=== PATIENT | male | born 1990 | race Caucasian/White ===

== ENCOUNTER 2020-03-02 12:08 | Inpatient (IN) ==
[2020-03-02] MEDS ORDERED: ONDANSETRON 4 MG/2 ML VIAL IV ONE (12:16)
[2020-03-02] MEDS ORDERED: LACTATED RINGERS 1,000 ML IV ONE ×2 (12:16→12:21)
[2020-03-02] MEDS ORDERED: PANTOPRAZOLE 40 MG VIAL IV ONE ×2 (12:27→22:25)
[2020-03-02] MEDS ORDERED: 0.9 % SODIUM CHLORIDE 1,000 ML IV ONE ×3 (12:30→14:17)
--- NOTE | 2020-03-02 12:31 | Emergency Department Note ---
Nausea/Vomiting/Diarrhea HPI General Chief complaint: Nausea/Vomiting/Diarrhea Stated complaint: nausea, vomiting Time Seen by Provider: 03/02/20 12:15 Source: patient and RN notes reviewed Mode of arrival: ambulatory Limitations: no limitations History of Present Illness HPI Narrative: Narrative: This patient felt a little nauseous yesterday afternoon and took some Pepto- Bismol and this morning had a large black stool and then vomited up some coffee- ground material. He does look a little bit pale. He has a history of reflux and had an EGD at age 19, 10 years ago. He has not taken any recent aspirin or NSAIDs. He has never had bleeding before that he knows of. His blood pressure was little low initially but he did not feel faint. No other medical problems of significance. He does not have abdominal pain. MD complaint: nausea and vomiting Onset (ago): hour(s) Description of Vomiting: coffee grounds Associated Abdominal Pain: No Associated symptoms: Reports other (Melena) Related Data Home Medications Medication Instructions Recorded Confirmed No Known Home Meds 05/06/19 03/02/20 Allergies Allergy/AdvReac Type Severity Reaction Status Date / Time bee venom protein (honey bee) Allergy Severe Anaphylaxis Verified 03/02/20 12:11 Penicillins [PENICILLINS] Allergy Intermediate RASH Verified 03/02/20 12:11 Review of Systems ROS ROS Narrative: Narrative: All systems ED: reviewed and negative except as stated. PFS Narrative Patient History Narrative: Narrative: Medical/Surgical/Family History All Active Problems (Updated 03/02/20 @ 15:19 by Liam Mendez MD) Upper respiratory infection (Acute) Insect bite (Acute) Muscle pain (Acute) Right inguinal hernia (Acute) Acute upper gastrointestinal bleeding (Acute) Social History Smoking Status: Current every day smoker Exam Narrative Narrative: Narrative: General Limitations: no limitations Head Head: Present atraumatic, normocephalic and normal inspection Eye Eye: Present normal appearance and EOMI; Absent scleral icterus and conjunctival injection ENT ENT: Present normal exam, normal oropharynx and mucous membranes moist Neck Neck: Present normal inspection and full ROM Chest Chest: Present normal inspection and symmetric chest wall rise Respiratory Respiratory: Present normal lung sounds bilaterally; Absent respiratory distress, rales/crackles and wheezes Cardiovascular Cardiovascular: Present regular rate, normal rhythm and normal heart sounds Adbominal Abdominal: Present soft; Absent distention and tenderness Rectal Rectal: Present heme (+) stool Extremities Extremities: Present normal inspection and full ROM; Absent pedal edema and pretibial edema Neurological Neurological: Present alert Psychiatric Psychiatric: Present normal affect Skin Skin: Present warm (WNL), dry and other (Skin seems pale in general) Course Vital Signs Vital signs: Vital Signs Pulse Rate 67 03/02/20 12:08 Respiratory Rate 16 03/02/20 12:08 Blood Pressure 85/62 03/02/20 12:08 Pulse Oximetry (%) 98 03/02/20 12:08 Temperature 97.6 F 03/02/20 14:09 Pulse Rate 65 03/02/20 14:46 Respiratory Rate 16 03/02/20 14:46 Blood Pressure 114/68 03/02/20 14:46 Pulse Oximetry (%) 98 03/02/20 14:46 MDM MDM Narrative Medical decision making narrative: Narrative: Lab Data Lab results reviewed: Yes I reviewed the patient's lab results. Lab results narrative: Patient's hemoglobin is dropped from 16-12.8 and his BUN is going up from 13-45 from previous testing. Patient initially was a little bit worrisome with blood pressures in the 80s but they came up rapidly with fluid hydration. He was given a Protonix protocol with bolus and drip. I discussed this case with Dr. Saab who will admit the patient to the hospital for endoscopy in the morning. Patient seems to have stabilized and is doing well at this time. Result diagrams: 03/02/20 12:20 03/02/20 12:20 Labs: Lab Results 03/02/20 03/02/20 03/02/20 Range/Units 12:20 12:20 14:06 WBC 22.4 H (4.5-11.0) K/mcL RBC 3.98 L (4.50-5.90) M/mcL Hgb 12.8 L (13.5-16.5) g/dL Hct 37.7 L (41.0-55.0) % MCV 94.7 (80.0-100.0) fL MCH 32.2 (26.0-34.0) pg MCHC 34.0 (31.0-36.0) g/dL RDW 11.6 (11.5-14.5) % Plt Count 301 (140-440) K/mcL MPV 11.0 H (7.4-10.4) fL Neut % (Auto) 75.4 (38.0-78.0) % Lymph % (Auto) 17.4 (15.0-49.0) % [place] % (Auto) 5.7 (1.0-12.0) % Eos % (Auto) 1.1 (0.0-7.0) % Baso % (Auto) 0.4 (0.0-2.0) % Lymph # (Auto) 3.90 (1.50-4.80) K/mcL Willacy # (Auto) 1.27 H (0.10-0.90) K/mcL Eos # (Auto) 0.24 (0.00-0.70) K/mcL Baso # (Auto) 0.09 (0.00-0.20) K/mcL Absolute Neutrophils 16.94 H (1.80-8.00) K/mcL VBG Lactic Acid 2.5 H (0.5-2.0) mmol/L Sodium 139 (133-145) mmol/L Potassium 3.8 (3.3-5.1) mmol/L Chloride 99 (96-108) mmol/L Carbon Dioxide 23 (22-30) mmol/L Anion Gap 17.0 H (8.0-16.0) BUN 45 H (6-20) mg/dL Creatinine 0.8 (0.7-1.2) mg/dL GFR Calculation 121 Glucose 165 H (70-105) mg/dL Calcium 8.8 (8.6-10.4) mg/dL Total Bilirubin 0.4 (0.1-1.0) mg/dL AST 18 (<40) U/L ALT 19 (<40) U/L Alkaline Phosphatase 70 (39-117) U/L Total Protein 6.0 (5.9-8.4) gm/dL Albumin 4.0 (3.2-5.2) gm/dL Globulin 2.0 L (2.2-3.7) gm/dL Albumin/Globulin Ratio 2.0 (1.0-2.3) Discharge Plan Patient/Caregiver Discharge Instructions Pt seen by SKATES OPERATOR/PA only: No Clinical Impression: Acute upper gastrointestinal bleeding Patient Disposition: Xfer As Outpt/Obs ([facility]) Follow up with: No,PCP [Primary Care Provider] - Prescriptions: No Action No Known Home Meds RF: 0
[2020-03-02] MEDS: PANTOPRAZOLE 80 MG in 0.9 % SODIUM CHLORIDE 100 ML IV SCH ×2 (12:52→22:30)
[2020-03-02 13:12] LABS: Basophils # (Auto) 0.09 K/mcL (0.00-0.20); Basophils % (Auto) 0.4 % (0.0-2.0); Eosinophils # (Auto) 0.24 K/mcL (0.00-0.70); Eosinophils % (Auto) 1.1 % (0.0-7.0); Hematocrit 37.7 % (41.0-55.0); Hemoglobin 12.8 g/dL (13.5-16.5); Lymphocytes % (Auto) 17.4 % (15.0-49.0); Mean Cell Volume 94.7 fL (80.0-100.0); Monocytes # (Auto) 1.27 K/mcL (0.10-0.90); Monocytes % (Auto) 5.7 % (1.0-12.0); Neutrophils % (Auto) 75.4 % (38.0-78.0); Platelet Count 301 K/mcL (140-440); RBC 3.98 M/mcL (4.50-5.90); Red Cell Distribution Width 11.6 % (11.5-14.5); WBC 22.4 K/mcL (4.5-11.0)
[2020-03-02 13:29] LABS: ALT/SGPT 19 U/L (<40); AST/SGOT 18 U/L (<40); Alkaline Phosphatase 70 U/L (39-117); Bilirubin,Total 0.4 mg/dL (0.1-1.0); Blood Urea Nitrogen 45 mg/dL (6-20); Calcium 8.8 mg/dL (8.6-10.4); Carbon Dioxide 23 mmol/L (22-30); Chloride 99 mmol/L (96-108); Glomerular Filtration Rate 121; Glucose 165 mg/dL (70-105)
[2020-03-02] MEDS ORDERED: ONDANSETRON 4 MG/2 ML VIAL IV PRN (15:19)
[2020-03-02] MEDS ORDERED: 0.9 % SODIUM CHLORIDE 250 ML IV SCH (17:45)
--- NOTE | 2020-03-02 18:18 | General Surg History&Physical ---
HPI History of Present Illness Patient information: Note initiated : 03/02/20 at 6:11 pm Service Date, if different from initiated Date: [] Patient: Chun Sosa 29 y/o M admitted on 03/02/20 for nausea, vomiting. Chief Complaint: [] History of present illness: Mr. Sosa is a 29 year old M admitted with an upper GI bleed. The patient states that he developed nausea earlier this morning. This was followed by emesis of coffee ground liquid and large volume melena. He denies upper abdominal pain. He had emesis 3 AND HAS NOT HAD ANY SINCE THAT TIME. He has not been taking any [id number] medications. He rarely drinks alcohol and has not had any S2 weeks. His hemoglobin is 12.8. His last recorded hemoglobin was 16. There is no family history of peptic ulcer disease. Review of Systems All systems: reviewed and no additional remarkable complaints except as stated PFSH PFSH All Active Problems Upper respiratory infection (Acute) Insect bite (Acute) Muscle pain (Acute) Right inguinal hernia (Acute) Acute upper gastrointestinal bleeding (Acute) Social History (Updated 03/02/20 @ 18:14 by Tai Saab MD) adopted: No caregiver/support person: No foster care: No marital status: single well-balanced diet: daily or most days smoking status: Current every day smoker alcohol intake frequency: a few times a month substance use type: marijuana MEDS/ALLERGIES Home Medications and Allergies Home Medications Medication Instructions Recorded Confirmed Type No Known Home Meds 05/06/19 03/02/20 History Allergies Allergy/AdvReac Type Severity Reaction Status Date / Time bee venom protein (honey bee) Allergy Severe Anaphylaxis Verified 03/02/20 12:11 Penicillins [PENICILLINS] Allergy Intermediate RASH Verified 03/02/20 12:11 Physical Examination Vital Signs Vital signs: Temp Pulse Resp BP Pulse Ox 98.6 F 69 18 110/62 96 03/02/20 17:46 03/02/20 17:46 03/02/20 17:46 03/02/20 17:46 03/02/20 17:46 General physical appearance General physical exam: well developed, well nourished, no distress and no pain Eyes Eye exam: PERRL and normal ocular movement; negative pale ENT ENT exam: normal pinna, normal nares, normal mucosa, no hearing loss and no congestion Head Head exam IM: Present atraumatic, normal inspection and normocephalic Neck Neck exam: no masses, no bruits, trachea midline, no lymphadenopathy and no venous distension Cardiovascular Cardiovascular exam IM: Present normal rate and rhythm, RRR, +S1 and +S2; Absent JVD and tachycardia Respiratory Respiratory exam: normal expansion, normal respiratory effort and clear to auscultation Abdomen Abdomen: Present soft and non tender; Absent masses and distended Hernia: Present inguinal (right inguinal hernia) Integumentary Integumentary: Present no rash, no growths and no abnormal pigmentation Neurologic Neurologic: Present normal coordination and normal sensation Musculoskeletal Musculoskeletal: Present normal gait and normal posture Psychiatric Psychiatric: Present oriented to time, oriented to person, oriented to place, speech is normal and memory intact Results Labs Result diagrams: 03/02/20 12:20 03/02/20 12:20 Labs: Abnormal lab results 03/02/20 03/02/20 03/02/20 Range/Units 12:20 12:20 14:06 WBC 22.4 H (4.5-11.0) K/mcL RBC 3.98 L (4.50-5.90) M/mcL Hgb 12.8 L (13.5-16.5) g/dL Hct 37.7 L (41.0-55.0) % MPV 11.0 H (7.4-10.4) fL Tucker # (Auto) 1.27 H (0.10-0.90) K/mcL Absolute Neutrophils 16.94 H (1.80-8.00) K/mcL VBG Lactic Acid 2.5 H (0.5-2.0) mmol/L Anion Gap 17.0 H (8.0-16.0) BUN 45 H (6-20) mg/dL Glucose 165 H (70-105) mg/dL Globulin 2.0 L (2.2-3.7) gm/dL Diabetes panel 03/02/20 Range/Units 12:20 Sodium 139 (133-145) mmol/L Potassium 3.8 (3.3-5.1) mmol/L Chloride 99 (96-108) mmol/L Carbon Dioxide 23 (22-30) mmol/L BUN 45 H (6-20) mg/dL Creatinine 0.8 (0.7-1.2) mg/dL Glucose 165 H (70-105) mg/dL Calcium 8.8 (8.6-10.4) mg/dL AST 18 (<40) U/L ALT 19 (<40) U/L Alkaline Phosphatase 70 (39-117) U/L Total Protein 6.0 (5.9-8.4) gm/dL Albumin 4.0 (3.2-5.2) gm/dL Calcium panel 03/02/20 Range/Units 12:20 Calcium 8.8 (8.6-10.4) mg/dL Albumin 4.0 (3.2-5.2) gm/dL Pituitary panel 03/02/20 Range/Units 12:20 Sodium 139 (133-145) mmol/L Potassium 3.8 (3.3-5.1) mmol/L Chloride 99 (96-108) mmol/L Carbon Dioxide 23 (22-30) mmol/L BUN 45 H (6-20) mg/dL Creatinine 0.8 (0.7-1.2) mg/dL Glucose 165 H (70-105) mg/dL Calcium 8.8 (8.6-10.4) mg/dL Adrenal panel 03/02/20 Range/Units 12:20 Sodium 139 (133-145) mmol/L Potassium 3.8 (3.3-5.1) mmol/L Chloride 99 (96-108) mmol/L Carbon Dioxide 23 (22-30) mmol/L BUN 45 H (6-20) mg/dL Creatinine 0.8 (0.7-1.2) mg/dL Glucose 165 H (70-105) mg/dL Calcium 8.8 (8.6-10.4) mg/dL Total Bilirubin 0.4 (0.1-1.0) mg/dL AST 18 (<40) U/L ALT 19 (<40) U/L Alkaline Phosphatase 70 (39-117) U/L Total Protein 6.0 (5.9-8.4) gm/dL Albumin 4.0 (3.2-5.2) gm/dL All other labs normal. A/P Assessment and plan (1) Acute upper gastrointestinal bleeding: Status: Acute Narrative A/P Narrative: Protonix IV. nothing by mouth after midnight. Schedule for upper endoscopy in the morning. Type and cross for 4 units of packed red cells. COVID screening as soon as possible Time Spent With Patient Time: Total time spent is greater than 50% in coordination of care (as documented) at patient's floor/unit and/or counseling patient:
[2020-03-02] MEDS: LACTATED RINGERS 1,000 ML IV SCH (19:32)
[2020-03-02] MEDS: SUCRALFATE 1 GM/10 ML ORAL.SUSP PO SCH ×2 (19:33→23:43)
[2020-03-03 02:44] LABS: Hemoglobin 10.5 g/dL (13.5-16.5)
[2020-03-03] MEDS: LACTATED RINGERS 1,000 ML IV SCH ×3 (03:36→14:07)
[2020-03-03] MEDS: SUCRALFATE 1 GM/10 ML ORAL.SUSP PO SCH ×3 (05:38→17:48)
[2020-03-03 07:00] LABS: Basophils # (Auto) 0.03 K/mcL (0.00-0.20); Basophils % (Auto) 0.3 % (0.0-2.0); Eosinophils # (Auto) 0.11 K/mcL (0.00-0.70); Eosinophils % (Auto) 1.2 % (0.0-7.0); Hematocrit 31.8 % (41.0-55.0); Hemoglobin 10.8 g/dL (13.5-16.5); Lymphocytes # (Auto) 1.84 K/mcL (1.50-4.80); Lymphocytes % (Auto) 19.3 % (15.0-49.0); Mean Cell Volume 92.7 fL (80.0-100.0); Mean Platelet Volume 10.7 fL (7.4-10.4); Monocytes # (Auto) 0.51 K/mcL (0.10-0.90); Monocytes % (Auto) 5.4 % (1.0-12.0); Neutrophils % (Auto) 73.8 % (38.0-78.0); Platelet Count 158 K/mcL (140-440); RBC 3.43 M/mcL (4.50-5.90); Red Cell Distribution Width 12.2 % (11.5-14.5); WBC 9.5 K/mcL (4.5-11.0)
[2020-03-03] MEDS: PANTOPRAZOLE 80 MG in 0.9 % SODIUM CHLORIDE 100 ML IV SCH ×2 (08:31→20:21)
[2020-03-03] MEDS ORDERED: PROPOFOL 200 MG/20 ML VIAL IV ONE (13:00)
[2020-03-03] MEDS ORDERED: ONDANSETRON 4 MG/2 ML VIAL ONE (13:00)
[2020-03-03] MEDS ORDERED: MIDAZOLAM 5 MG/5 ML VIAL ONE (13:00)
[2020-03-03] MEDS ORDERED: fentaNYL 100 MCG/2 ML VIAL IV ONE (13:00)
--- NOTE | 2020-03-03 13:25 | Brief Operative Note ---
Brief Operative Note Date of procedure: 03/03/20 Pre-op diagnosis: upper G.I. BLEEDING Post-op diagnosis: other (PYLORIC CHANNEL ULCER WITH PYLORIC STENOSIS;DISTAL ESOPHAGITIS) Procedure: ESOPHAGOGASTRODUODENOSCOPY Grafts/Implants: No Anesthesia: other (GENERAL) Findings: INFLAMMATION WITH MILD ULCERATION OF G E JUNCTION ULCERATION OF PYLORIC CHANNEL WITH MAJOR STENOSIS NO ACTIVE BLEEDING Complications: none Surgeon: Tai Saab Specimens Removed/Pathology: none sent Condition: stable Disposition: PACU
[2020-03-03] MEDS ORDERED: ONDANSETRON 4 MG/2 ML VIAL IV PRN (15:22)
[2020-03-04] MEDS: SUCRALFATE 1 GM/10 ML ORAL.SUSP PO SCH ×4 (00:10→17:22)
[2020-03-04] MEDS: PANTOPRAZOLE 80 MG in 0.9 % SODIUM CHLORIDE 100 ML IV SCH (06:01)
[2020-03-04 06:34] LABS: Basophils # (Auto) 0.04 K/mcL (0.00-0.20); Basophils % (Auto) 0.8 % (0.0-2.0); Eosinophils # (Auto) 0.12 K/mcL (0.00-0.70); Eosinophils % (Auto) 2.3 % (0.0-7.0); Hematocrit 29.6 % (41.0-55.0); Hemoglobin 10.4 g/dL (13.5-16.5); Lymphocytes # (Auto) 1.67 K/mcL (1.50-4.80); Lymphocytes % (Auto) 31.4 % (15.0-49.0); Mean Cell Volume 91.1 fL (80.0-100.0); Mean Corpuscular HGB Conc 35.1 g/dL (31.0-36.0); Mean Platelet Volume 10.7 fL (7.4-10.4); Monocytes # (Auto) 0.26 K/mcL (0.10-0.90); Monocytes % (Auto) 4.9 % (1.0-12.0); Neutrophils % (Auto) 60.6 % (38.0-78.0); Platelet Count 139 K/mcL (140-440); RBC 3.25 M/mcL (4.50-5.90); Red Cell Distribution Width 12.1 % (11.5-14.5); WBC 5.3 K/mcL (4.5-11.0)
[2020-03-04 07:00] LABS: ALT/SGPT 34 U/L (<40); AST/SGOT 28 U/L (<40); Albumin 3.4 gm/dL (3.2-5.2); Albumin/Globulin Ratio 1.5 (1.0-2.3); Alkaline Phosphatase 50 U/L (39-117); Bilirubin,Direct < 0.2 mg/dL (<0.3); Bilirubin,Total 0.5 mg/dL (0.1-1.0); Blood Urea Nitrogen 10 mg/dL (6-20); Calcium 8.5 mg/dL (8.6-10.4); Carbon Dioxide 26 mmol/L (22-30); Chloride 104 mmol/L (96-108); Globulin 2.2 gm/dL (2.2-3.7); Glomerular Filtration Rate 128; Glucose 101 mg/dL (70-105); Lactate Dehydrogenase 121 U/L (135-225); Triglycerides 200 mg/dL (<150); Uric Acid 4.8 mg/dL (2.5-8.0)
--- NOTE | 2020-03-04 12:38 | General Surgery Progress Note ---
SUBJECTIVE Subjective Patient information: Note initiated : 03/04/20 at 12:33 pm Service Date, if different from initiated Date: [] Patient: Chun Sosa 29 y/o M admitted on 03/02/20 for nausea, vomiting. Chief Complaint: [] Principal diagnosis: upper GI bleeding Interval history: patient is doing well. She had bowel movements this morning without difficulty. He denies nausea. Hemoglobin 10.4, hematocrit 29.6. No c omplaints of nausea. Constitutional Vitals: Vital Signs Temp Pulse Resp BP Pulse Ox 98.3 F 74 18 123/75 98 03/04/20 07:39 03/04/20 08:00 03/04/20 07:39 03/04/20 07:39 03/04/20 07:39 Period Temp Pulse Resp BP Sys/[place] Pulse Ox Last 24 Hr 97.3 F-98.3 F 64-87 14-20 98-123/44-98 96-100 Intake and Output 03/03/20 03/04/20 03/04/20 21:59 05:59 13:59 Intake Total 6202 160 4653 Output Total 600 750 450 Balance 650 -460 897 Weight 150 lb 12.8 oz Intake & Output: Intake & Output 03/03/20 03/04/20 03/04/20 21:59 05:59 13:59 Intake Total 4219 994 3131 Output Total 600 750 450 Balance 650 -460 897 Weight 150 lb 12.8 oz Intake: IV 500 97 Lactated Ringers 1,000 ml @ 100 500 mls/hr IV .Q10H STORM Rx#: [id number] Protonix 80 mg In Sodium 97 Chloride 0.9% 100 ml @ 8 MG/HR 10 mls/hr IV Q10H STORM Rx#: [id number] Oral 723 215 3120 Output: Void Amount 600 750 450 Other: Meal Dinner Breakfast Percent of Meal Consumed 100% 100% Feeding Ability Independent Assist with Tray Set Up Urine Appearance Clear Clear Urine Color Dark Yellow Bright Yellow Urine Odor Strong # Voids 1 Head Head exam: Present atraumatic, normal inspection and normocephalic Eye Eye exam: Present EOMI Pupils: Present normal accommodation and PERRL ENT ENT exam: Present mucous membranes moist, normal exam and normal external ear exam Neck Neck exam: Present full ROM and normal inspection; Absent tenderness and thyromegaly Respiratory Respiratory exam: Present normal respiratory exam and CTAB; Absent rales, rhonchi and wheezes Cardiovascular Cardiovascular exam: Present normal rate and rhythm, RRR, +S1 and +S2; Absent systolic murmur GI/Abdominal GI/Abdominal exam: Present normal bowel sounds and soft; Absent distended and tenderness Extremities Exam Extremities exam: Present full ROM and neurovascular intact Back Exam Back exam: Present full ROM; Absent tenderness Neurological Exam Neurological exam: Present alert, CN II-XII intact and normal gait; Absent motor sensory deficit Psychiatric Psychiatric exam: Present normal affect and normal mood A/P Assessment and plan (1) Acute pyloric channel ulcer: Status: Acute Narrative A/P Narrative: saline lock IV. Regular diet. Switch to oral pantoprazole Time Spent With Patient Time: Total time spent is greater than 50% in coordination of care (as documented) at patient's floor/unit and/or counseling patient:
[2020-03-04] MEDS: NICOTINE 21 MG PATCH TOPICAL SCH (13:19)
[2020-03-04] MEDS: PANTOPRAZOLE 40 MG TABLET PO SCH (17:23)
[2020-03-05] MEDS: SUCRALFATE 1 GM/10 ML ORAL.SUSP PO SCH ×3 (00:03→12:45)
[2020-03-05] MEDS: NICOTINE 21 MG PATCH TOPICAL SCH (10:05)
[2020-03-05] MEDS: PANTOPRAZOLE 40 MG TABLET PO SCH (10:05)
--- NOTE | 2020-03-05 11:05 | Discharge Summary ---
Discharge Provider Provider Patient information: Note initiated : 03/05/20 at 11:04 am Service Date, if different from initiated Date: [] Patient: Chun Sosa 29 y/o M admitted on 03/04/20 for nausea, vomiting. Chief Complaint: [] Date of admission: 03/04/20 12:30 Discharge date: 03/05/20 Primary care physician: PCP No Admitting clinician: Tai Saab Consults: 03/02/20 Consult to Physician [CONS] Stat Comment: Consulting Provider: Tai Saab Reason For Exam: Physician to Consult Attending physician on discharge: Tai Saab Discharging clinician: Tai Saab COURSE Hospital Course Hospital course: 29-year-old male who was admitted through the emergency room on 02 March with complaint of hematemesis and melena. He had severe weakness. It was noted that his hemoglobin had dropped from 16-10. He was started on pantoprazole infusion and monitored overnight. EGD was done on July and that showed a large lower channel ulcer with near complete obstruction of the pylorus but without active bleeding. Patient has done well since his endoscopy. He did have one dark stool earlier this morning but the rest of his stool is normal color. Final hemoglobin is pending, but it was holding at 10.4. Patient is asymptomatic and is tolerating regular diet.. Discharge diagnosis: pyloric channel ulcer Secondary discharge diagnosis: upper GI bleeding Reason for admission: upper GI bleeding Procedures: esophagogastroduodenoscopy Pertinent studies/significant findings: none Time Spent with Patient Time attestation: Total time spent providing and/or coordinating discharge services: Time spent: Less than 30 minutes Physical Examination Vital Signs Vital signs: Temp Pulse Resp BP Pulse Ox 97.9 F 87 18 130/86 99 03/05/20 08:00 03/05/20 08:00 03/05/20 08:00 03/05/20 08:00 03/05/20 08:00 General physical appearance General physical exam: well developed, well nourished, no distress and no pain Eyes Eye exam: PERRL and normal ocular movement; negative pale ENT ENT exam: normal pinna, normal nares, normal mucosa, no hearing loss and no congestion Head Head exam IM: Present atraumatic, normal inspection and normocephalic Cardiovascular Cardiovascular exam IM: Present normal rate and rhythm, RRR, +S1 and +S2; Absent JVD and tachycardia Abdomen Abdomen: Present soft and non tender; Absent masses and distended Hernia: Present inguinal (right inguinal hernia) Integumentary Integumentary: Present no rash, no growths and no abnormal pigmentation Neurologic Neurologic: Present normal coordination and normal sensation Psychiatric Psychiatric: Present oriented to time, oriented to person, oriented to place, speech is normal and memory intact Discharge Plan Patient/Caregiver Discharge Instructions Activity: increase activity as tolerated Diet: Regular Diet Prescriptions: New sucralfate [Carafate] 1 GM tablet 1 gm PO QIDP Qty: 120 RF: 3 nicotine [Nicoderm CQ] 21 mg/24 hr patch 24 hour 1 patch TRANSDERMA QDAY Qty: 30 RF: 0 pantoprazole 40 mg Tablet,Delayed Release (Dr/Ec) 40 mg PO BIDAC Qty: 60 RF: 3 Follow Up Plan Follow up with: No,PCP [Primary Care Provider] - Patient Disposition: Home, Self-Care Prognosis: Good Rehab Potential: Good I certify that the patient requires SNF services: No Overall status at discharge: patient is progressing back to baseline Discharge Orders: Discharge Order (Routine); Ordered 03/05/20 Ordered By: Tai Saab Pending Pending Pending: Resuscitation Status Full Code Diet Regular Diet Start MonMar 04 1238 Nicotine (Nicoderm) 21 mg TOPICAL DAILY@1000 [facility] Last Admin: 03/05/20 10:05 Dose: 21 mg Documented by: Admin: 03/04/20 13:19 Dose: 21 mg Documented by: ALLISON Pantoprazole Sodium (Protonix) 40 mg PO BIDAC [facility] Last Admin: 03/05/20 10:05 Dose: 40 mg Documented by: Admin: 03/04/20 17:23 Dose: 40 mg Documented by: LUCAS Sucralfate (Carafate) 1 gm PO Q6H [facility] Last Admin: 03/05/20 05:07 Dose: 1 gm Documented by: Admin: 03/05/20 00:03 Dose: 1 gm Documented by: Admin: 03/04/20 17:22 Dose: 1 gm Documented by: Admin: 03/04/20 12:16 Dose: 1 gm Documented by: Admin: 03/04/20 04:26 Dose: 1 gm Documented by: Admin: 03/04/20 00:10 Dose: 1 gm Documented by: Admin: 03/03/20 17:48 Dose: 1 gm Documented by: [email or web address] Shift Summary 03/05/20 04:13 Shift Summary by Petra Gamino Patient admitted for upper GI bleed. Patient is doing great, tolerating a regular diet. VSS on RA. Independent in room. Denies pain and able to express needed. IV is SL. Should go home today. Will update at bedside. Initialized on 03/05/20 04:13 - END OF NOTE
[2020-03-05 11:40] LABS: Basophils # (Auto) 0.03 K/mcL (0.00-0.20); Basophils % (Auto) 0.5 % (0.0-2.0); Eosinophils # (Auto) 0.13 K/mcL (0.00-0.70); Hemoglobin 11.5 g/dL (13.5-16.5); Lymphocytes # (Auto) 1.45 K/mcL (1.50-4.80); Lymphocytes % (Auto) 22.4 % (15.0-49.0); Mean Cell Volume 91.2 fL (80.0-100.0); Mean Corpuscular HGB Conc 34.8 g/dL (31.0-36.0); Mean Platelet Volume 10.6 fL (7.4-10.4); Monocytes # (Auto) 0.41 K/mcL (0.10-0.90); Monocytes % (Auto) 6.3 % (1.0-12.0); Neutrophils % (Auto) 68.8 % (38.0-78.0); Platelet Count 187 K/mcL (140-440); RBC 3.62 M/mcL (4.50-5.90); Red Cell Distribution Width 12.1 % (11.5-14.5); WBC 6.5 K/mcL (4.5-11.0)
== END 2020-03-05 13:00 | disposition home or self-care (01) | DRG 378 ==
LOC: ED 12:08 → MEDSUR 17:46 → INTOOBSV 17:46
PROVIDERS: ADMIT Family Medicine Adult Medicine; ATTEND Family Medicine Adult Medicine